=== PATIENT | male | born 1995 | race Caucasian/White ===

== ENCOUNTER 2024-07-01 17:11 | Emergency (ER) | payer OTHER ==
[2024-07-01 17:36] VITALS: BP 132/74; PULSE 82; RESP 18; TEMP 98.7; BMI 33.0
[2024-07-01] MEDS ORDERED: ACETAMINOPHEN INJECTION 100 ML ONE (18:47)
[2024-07-01] MEDS: ACETAMINOPHEN 1000 MG/100 ML BAG IVPB ONE (18:52)
[2024-07-01] MEDS: SODIUM CHLORIDE 1,000 ML IV STA (18:52)
[2024-07-01 19:03] LABS: URINE APPEARANCE CLEAR; URINE BILIRUBIN NEGATIVE (NEGATIVE); URINE COLOR YELLOW; URINE GLUCOSE (UA) NEGATIVE (NEGATIVE); URINE KETONE NEGATIVE (NEGATIVE); URINE LEUK ESTERASE NEGATIVE (NEGATIVE); URINE NITRITE NEGATIVE (NEGATIVE); URINE PROTEIN NEGATIVE (NEGATIVE)
[2024-07-01 19:08] LABS: BASO % 0.9 % (0-2.0); EOS % 5.6 % (0-4.5); HEMATOCRIT 44.5 % (35.4-49); HEMOGLOBIN 15.3 GM/dL (11.7-16.9); LYMPH % 41.4 % (8-40); MCH 29.6 pg (25.7-33.7); MCHC 34.3 g/dl (32.0-35.9); MEAN CELL VOLUME 86.3 fl (80-96); MONO % 7.9 % (3.8-10.2); NEUT % 44.2 % (42.8-82.8); PLATELET COUNT 235 10^3/uL (134-434); RBC 5.16 M/mm3 (4.00-5.60); RDW 13.1 % (11.9-15.9); WHITE BLOOD COUNT 6.1 K/mm3 (4.0-10.0)
[2024-07-01 19:48] LABS: CALCIUM 9.3 mg/dL (8.5-10.1)
[2024-07-01 19:49] LABS: BLOOD UREA NITROGEN 19.6 mg/dL (7-18)
[2024-07-01 19:54] LABS: BILIRUBIN,TOTAL 0.5 mg/dL (0.2-1); TOT PROT 7.3 g/dl (6.4-8.2)
== END 2024-07-01 22:30 | disposition home or self-care (01) ==
LOC: JER 17:11
PROC: 3E033NZ Introduction of Analgesics, Hypnotics, Sedatives into Peripheral Vein, Percutaneous Approach (ICD-10-PCS; principal; 2024-07-01)
PROC: 3E0337Z Introduction of Electrolytic and Water Balance Substance into Peripheral Vein, Percutaneous Approach (ICD-10-PCS; 2024-07-01)
DX: N43.3 Hydrocele, unspecified (principal); N50.3 Cyst of epididymis; R30.0 Dysuria
CPT/HCPCS: 36415; 74177-TC; 76870-TC; 80053; 81003; 85025; 87086; 96361; 96374; 99285-25; J0131; Q9967